=== PATIENT | female | born 1995 | race Caucasian/White ===

== ENCOUNTER 2016-11-22 07:59 | Emergency (ER) | payer SELFPAY ==
[2016-11-22 08:18] VITALS: BMI 29.7
--- NOTE | 2016-11-22 08:54 | EDPRACDOC ---
- General Information Chief Complaint: Vaginal Bleeding Stated Complaint: URINARY PROBLEM (BLOOD) 3-8 WKS PREG Time Seen by Provider: 11/22/16 08:26 Information Source: Patient Home Medications: Home Medications No Home Medications 11/22/16 Allergies/Adverse Reactions: Allergies Allergy/AdvReac Type Severity Reaction Status Date / Time No Known Allergies Allergy Verified 05/22/14 17:01 - History of Present Illness Onset: THIS AM HPI: PT WITH VAGINAL BLEEDING THAT STARTED 0700 THIS AM. SPONTANEOUS. NO ABD PAIN OR CRAMPS. LAST MENSES KAYLIN EMMETT. NO VAGINAL DISCHARGE PRIOR TO TODAY. + . . Description: Reports: Spontaneous ED Past Medical History - History Reviewed Yes Nurses notes reviewed and agree except as marked - Patient Medical History Psychological History: Denies: Depression - Social Medical History Smoking Status: Never smoker EDM Review of Systems - Review of Systems ROS Negative Except as Marked: Yes All systems reviewed and were negative except as marked Constitutional: No Symptoms Reported Respiratory: No Symptoms Reported Cardiovascular: No Symptoms Reported Gastrointestinal: No Symptoms Reported Neurological: No Symptoms Reported Musculoskeletal: No Symptoms Reported - Physical Exam Constitutional: Alert (Awake), No apparent distress Oriented to: Time, Person, Place Last recorded Vital Signs: Last Vital Signs Temp 98.0 F 11/22/16 08:15 Pulse 89 11/22/16 08:15 Resp 18 11/22/16 08:15 BP 116/60 11/22/16 08:15 Pulse Ox 99 11/22/16 08:15 Oxygen Pulse Oxygen Saturation 99 O2 Device Room Air Oxygen Flow Rate Fraction of Inspired Oxygen ( FIO2) - HEENT Head: Normal ( normocephalic) Eye Exam: Normal (PERRL, EOMI, Sclera white) Oropharynx: Normal (Pharynx:Moist without exudate,Gums-no swelling) Nose: No Symptoms Reported (septum midline) Neck: Normal (FROM, trachea at midline) - Respiratory/Cardiovascular Respiratory: Normal - CTA (BBS clear to auscultation without adventitious sounds ) Cardiovascular: Normal (RRR without murmur, gallop or rub) - GI Auscultation: Normal (NABS) Palpation: Normal (Soft,No rebound or guarding, non distended) Tenderness: Non tender Weeks's Sign: Negative - External: Normal Vagina: Other (SMALL AMOUNT OF BLOOD) Cervix: Blood (SMALL AMOUNT.) - Musculoskeletal Back: Normal (Non-Tender) Extremities: Normal (Normal tone, Pulses 2+ No cyanosis or edema, FROM) - Integumentary Skin: Normal, Warm, Dry Lymphatics: Normal (no adenopathy) - Neurologic Memory Impaired: Normal Motor Function: Normal (Normal tone, Pulses 2+ No cyanosis or edema, FROM) Cranial Nerve: Normal (CN II-X11 intact sensation, strength 5/5) Cerebellar: Normal Mood Description: Normal Perception: Normal - Results 11/22/16 08:57 11/22/16 08:57 - Additional Information BEDSIDE ULTRASOUND PERFORMED. TOO EARLY TO CONFIRM IUP BY TRANSABD. - Departure Yes I personally saw and evaluated the patient. Disposition: Home Condition: Stable Final Diagnosis: Threatened miscarriage Instructions: Threatened Miscarriage (ED) Education/Counseling Given To: Patient Education/Counseling Given Regarding: Diagnosis Referrals: None,No Provider [Primary Care Provider] - One Week Prescriptions: No Action No Home Medications 0 NA DIR #0 info
[2016-11-22 09:14] LABS: MPV 7.9 fL (7.4-10.4)
[2016-11-22 09:26] LABS: BLOOD UREA NITROGEN 10 MG/DL (7-17); CALCIUM 9.2 MG/DL (8.4-10.2); CALCULATED OSMOLALITY 267 MOs/Kg (270-290); CHLORIDE 104 mEq/L (98-107); GLUCOSE 98 mg/dL (70-99); SODIUM LEVEL 139 mEq/L (137-146); TOTAL PROTEIN 6.7 G/DL (6.3-8.2)
[2016-11-22 09:27] LABS: LEUKOCYTES/URINE NEG (NEGATIVE); NITRITE/URINE NEG (NEGATIVE); RBC/URINE 0-2 (0-5); URINE OCCULT BLOOD NEG (NEG/TRACE); WBC/URINE 0-2 (0-5)
[2016-11-22 09:42] LABS: QUANTITATIVE SERUM HCG 10758.5 mIU/mL (<5)
[2016-11-22] MEDS ORDERED: RHo(D) IMMUNE GLOBULIN (HUMAN) 300 MCG SYRINGE IM ONE (10:28)
[2016-11-22 11:48] VITALS: BP 99/59; PULSE 82; TEMP 98.6
[2016-11-27 09:36] LABS: CHLAMY BY NUCLEIC ACID AMP Negative (Negative)
[2016-11-27 09:55] LABS: GC BY NUCLEIC ACID AMP Negative (Negative)
== END 2016-11-22 12:00 | disposition home or self-care (01) ==
LOC: ED 07:59
DX: O20.0 Threatened abortion (principal); Z3A.00 Weeks of gestation of pregnancy not specified
CPT/HCPCS: 36415; 80053; 81001; 81025; 84702; 85027; 85461; 86850; 86900; 86901; 87210; 87220; 87491; 87591; 96372; 99284; J2790